=== PATIENT | male | born 1960 | race Caucasian/White ===

== ENCOUNTER → 2019-05-06 | Outpatient (CLI) | payer OTHER ==
--- NOTE | 2019-05-07 00:36 | MR ---
EXAMINATION TYPE: MR brain wo con DATE OF EXAM: 05/06/2019 COMPARISON: None HISTORY: Hemiplegia, affecting right dominant side Standard multiplanar, multisequence MRI departmental protocol Multiplanar, multisequence images of the brain were acquired. Diffusion weighted imaging was performe d. FINDINGS: Ventricles have normal size. There is no mass effect nor midline shift. There is no sign of intracranial hemorrhage. There are multiple scattered white matter high signal foci at the mansfield-whit e matter junction of both cerebral hemispheres. There is involvement of all of the lobes. Total numbe r is approximately 35. These measure up to 6 mm. Brainstem appears normal. The cerebellum appears normal. Corpus callosum appears normal. Sella turcic a appears normal. Diffusion images show no sign of cortical infarct. IMPRESSION: Numerous scattered relatively peripheral white matter high signal lesions more likely related to [facility] small vessel ischemia. I think demyelinating disease is less likely. No evidence of cortical infa rct.
== END ==
LOC: RADMRIMAIN 19:23
PROVIDERS: ATTEND Family Medicine
DX: G81.91 Hemiplegia, unspecified affecting right dominant side (principal); R90.82 White matter disease, unspecified
CPT/HCPCS: 70551

== ENCOUNTER → 2019-05-10 | Outpatient (CLI) | payer OTHER ==
--- NOTE | 2019-05-10 13:49 | US ---
EXAMINATION TYPE: US carotid duplex BILAT DATE OF EXAM: 05/10/2019 COMPARISON: NONE CLINICAL HISTORY: G81.91 HEMIPLEGIA. Right side tingling, HTN controlled with meds EXAM MEASUREMENTS: RIGHT: Peak Systolic Velocity (PSV) cm/sec ----- Right CCA: 96.8 ----- Right ICA: 84.0 ----- Right ECA: 96.9 ICA/CCA ratio: 0.9 RIGHT: End Diastole cm/sec ----- Right CCA: 27.0 ----- Right ICA: 34.8 ----- Right ECA: 16.7 LEFT: Peak Systolic Velocity (PSV) cm/sec ----- Left CCA: 84.2 ----- Left ICA: 71.3 ----- Left ECA: 98.2 ICA/CCA ratio: 0.8 LEFT: End Diastole cm/sec ----- Left CCA: 22.6 ----- Left ICA: 23.0 ----- Left ECA: 15.4 VERTEBRALS (direction of flow): Right Vertebral: Antegrade Left Vertebral: Antegrade Rhythm: Normal No elevated velocities, significant stenosis or wall thickening visualized. Small amount of plaque s een in right bulb. IMPRESSION: Mild degree of grayscale atheromatous plaquing with no sonographically evident hemodynam ically significant stenosis within either visualized carotid arterial system. Criteria for Assigning % of Stenosis / Diameter reduction (Estimation based on the indirect measurements of the internal carotid artery velocities (ICA PSV). 1. Normal (no stenosis)=ICA PSV < 125 cm/s: ratio < 2.0: ICA EDV<40 cm/s. 2. Less than 50% stenosis=ICA PSV < 125 cm/s: ratio < 2.0: ICA EDV<40 cm/s. 3. 50 to 69% stenosis=ICA PSV of 125 to 230 cm/s: ration 2.0 ? 4.0: ICA EDV 40-100 cm/s. 4. Greater than 70% stenosis to near occlusion= ICA PSV > 230 cm/s: ratio > 4.0: ICA EDV > 100 cm/s. 5. Near occlusion= ICA PSV velocities may be low or undetectable: variable ratio and ICA EDV. 6. Total occlusion=unable to detect flow.
== END | disposition home or self-care (01) ==
LOC: RADUSWWP 10:45
PROVIDERS: ATTEND Family Medicine
DX: I65.21 Occlusion and stenosis of right carotid artery (principal)
CPT/HCPCS: 93880

== ENCOUNTER → 2019-06-06 | Outpatient (CLI) | payer OTHER ==
[2019-06-06 22:17] LABS: Total Protein,CSF 74 mg/dL (12-60)
[2019-06-06 22:49] LABS: Appearance,CSF Clear; CSF Tube Number 4; CSF Tube Volume 3; Nucleated Cells, CSF 1 u/L (0-5); Red Blood Cell,CSF 0 u/L (0-10)
[2019-06-08 14:19] LABS: IgG - CSF 5.3 mg/dL (0.0 - 3.4); IgG/Albumin Index (CSF) 0.49 (0.00 - 0.77)
== END | disposition home or self-care (01) ==
LOC: LABWHC1 08:11
PROVIDERS: ATTEND Nurse Practitioner Acute Care
DX: R90.82 White matter disease, unspecified (principal)
CPT/HCPCS: 36415; 82040; 82042; 82784; 83873; 83916; 84157; 87801; 89050

== ENCOUNTER → 2019-08-25 | Outpatient (CLI) | payer OTHER ==
--- NOTE | 2019-08-25 22:24 | CONS ---
CONSULTATION DATE OF SERVICE: 08/25/2019 A 59-year-old gentleman who has been evaluated in [facility] for possible obstructive sleep apnea/hypopnea syndrome. HISTORY OF PRESENT ILLNESS/SLEEP-WAKE EVALUATION: Patient's usual sleep schedule on working days is from around 2:00 a.m. until 9:00 to 10:00 a.m., on the weekend from about 11:00 to 12:00 midnight until 8:00 to 8:30 a.m. Usually no problems when falling asleep, although patient has TV set in the bedroom. He sleeps in different positions. He sleeps with loud snoring and according to his family, he has witnessed episodes of stopped breathing during his sleep. Patient wakes up from sleep with choking, gasping for air, dry mouth, and heartburn. In the morning the patient wakes up tired, has difficulties to pay attention, falling asleep during the day, worried about his sleep. The patient also has problems with memory and irritability. [place] Sleepiness Scale increased to 11. PAST MEDICAL HISTORY: Positive for hypertension, hyperlipidemia, prediabetes. PAST SURGICAL HISTORY: Hernia repair, right eye surgery for lazy eye. MEDICATIONS: Lisinopril, pravastatin, metformin, aspirin. SOCIAL HISTORY: Negative for smoking. Alcohol consumption occasional. FAMILY HISTORY: Hypertension, heart problems, hyperlipidemia, sinus problems, bronchitis, and diabetes. REVIEW OF SYSTEMS: Awakenings from sleep, snoring, sleepiness during the day. No history of hypnagogic hallucinations, sleep paralysis, or cataplexy. PHYSICAL EXAMINATION: GENERAL: A gentleman without distress. VITAL SIGNS: BP 102/56, HR 70, RR 14, height 5 feet 7.5 inches, weight 193 pounds, body mass index is 28.2, temperature is 98.2, oxygen saturation on room air 98%. HEENT: Oropharynx extremely low position of soft palate, Mallampati 4. Restriction of nasal breathing. PERRLA, EOMI, evaluation of oropharynx showed tongue protrudes midline. NECK: Supple, no JVD. Thyroid is not palpable. LUNGS: Clear to percussion and to auscultation. Good air exchange. No wheezing or rhonchi. HEART: S1, S2 regular. No murmurs, gallops, or rubs. ABDOMEN: Soft and nontender. Bowel sounds are present. No organomegaly appreciated. EXTREMITIES: No clubbing or cyanosis. MALLET AND DIE CUTTER: Awake, alert, and oriented X3. Cranial nerves 2 to 7 intact. There is no fasciculation or atrophy. noted. No focal deficits observed. IMPRESSION: 1. Loud snoring, witnessed episodes of stopped breathing during the sleep, awakenings from sleep with choking and gasping for air, extremely low position of soft palate, Mallampati 4, sleepiness during the day. [place] Sleepiness Scale increased to 11. Obstructive apnea/hypopnea syndrome. 2. Hypertension. 3. Hyperlipidemia. 4. Prediabetes. 5. Status post hernia repair. 6. Status post right eye surgery for lazy eye in childhood. PLAN: 1. Polysomnography for evaluation of patient's breathing during sleep. 2. CPAP/BiPAP titration if sleep study confirms obstructive sleep apnea-hypopnea syndrome. 3. Preferable position during sleep on the side. 4. No driving if patient feels any sleepiness. 5. I will see patient for follow up visit to explain results of testing and following plan. Thank you very much for recommending this patient for consultation. Sincerely, Ron Hebert MD, PhD, FAASM Diplomat of [employer] [facility] [place] MMODL / IJN: [id number] /
== END | disposition home or self-care (01) ==
LOC: SLEEP 15:59
PROVIDERS: ATTEND Internal Medicine
DX: G47.30 Sleep apnea, unspecified (principal); I10 Essential (primary) hypertension; E78.5 Hyperlipidemia, unspecified; R73.03 Prediabetes; Z98.890 Other specified postprocedural states; Z79.899 Other long term (current) drug therapy; Z79.84 Long term (current) use of oral hypoglycemic drugs; Z79.82 Long term (current) use of aspirin
CPT/HCPCS: 99211